=== PATIENT | female | born 1935 | race Caucasian/White ===

== ENCOUNTER 2017-04-09 16:51 | Emergency (ER) | payer OTHER ==
[~2017-04-09] VITALS: Ht 157.5 cm; Wt 72.6 kg
[~2017-04-09 16:51] MED LIST: LEVE500T9 PO; LEVO100T PO
[2017-04-09] MEDS ORDERED: SPIRONOLACTONE (17:00)
[2017-04-09] MEDS ORDERED: ALLOPURINOL (17:00)
[2017-04-09 19:01] LABS: BASOPHILS # (AUTO) 0.1 K/uL (0.0-8.0); BASOPHILS % (AUTO) 0.9 % (0.0-2.0); EOSINOPHILS # (AUTO) 0.4 K/uL (0.0-0.7); EOSINOPHILS % (AUTO) 4.8 % (0.0-7.0); HEMATOCRIT 38.6 % (37-47); HEMOGLOBIN 12.9 G/DL (12.0-16.0); LYMPHOCYTES # (AUTO) 1.5 K/UL (0.8-4.8); LYMPHOCYTES % (AUTO) 19.4 % (20.5-51.5); MEAN CORPUSCULAR HEMOGLOBIN 30.5 UUG (27.0-31.0); MEAN CORPUSCULAR HGB CONC 34 g/dL (32.0-37.0); MEAN CORPUSCULAR VOLUME 90.8 FL (81.0-99.0); MONOCYTES # (AUTO) 0.8 K/UL (0.1-1.30); MONOCYTES % (AUTO) 10.4 % (0.0-11.0); NEUTROPHILS % (AUTO) 64.5 % (38.5-71.5); PLATELET COUNT (AUTO) 202 K/UL (150-450); RED BLOOD CELL COUNT(AUTO) 4.25 MIL/UL (4.2-5.4); WHITE BLOOD COUNT (AUTO) 7.8 K/UL (4.0-11.2)
[2017-04-09 19:07] LABS: CARBON DIOXIDE 27 mmol/L (21-32); CHLORIDE 104 mmol/L (98-107); CREATININE 0.8 mg/dL (0.6-1.3); GLUCOSE 114 mg/dL (74-106); POTASSIUM 3.6 mmol/L (3.5-5.1); UREA NITROGEN, BLOOD 17 mg/dL (7-18)
[2017-04-09 19:13] LABS: ALANINE AMINOTRANSFERASE 19 U/L (14-59); ALKALINE PHOSPHATASE 82 U/L (50-136); ASPARTATE AMINOTRANSFERASE 16 U/L (15-37); BILIRUBIN,DIRECT 0.1 mg/dL (0.0-0.2); BILIRUBIN,TOTAL 0.4 mg/dL (0.2-1.0); TOTAL PROTEIN, SERUM 7.7 g/dL (6.4-8.2)
--- NOTE | 2017-04-09 19:30 | NUR ---
received sitting @ bedside, denies pain or discomfort, in no distress, pending disposition
--- NOTE | 2017-04-09 20:30 | NUR ---
re ryan by Dr. Cantor
--- NOTE | 2017-04-09 20:30 | NUR ---
Fredy martinez in [facility] - 04/10/17 at 0434 by MARTY re eval by Dr. Cardenas Addendum: 04/10/17 at 0434 by MARTY Paul martinez in [facility] - 04/10/17 at 0434 by MARTY re eval by Dr. Cantor
[2017-04-09 21:30] VITALS: BP_SYST 140
== END 2017-04-09 21:30 | disposition home or self-care (01) ==
LOC: ER 16:52
DX: L30.9 Dermatitis, unspecified (principal); G40.909 Epilepsy, unspecified, not intractable, without status epilepticus; R42 Dizziness and giddiness
CPT/HCPCS: 36415; 70450; 71010; 80048; 80076; 83605; 84484; 85025; 85730; 87040 ×2; 93005; 99285; A4663; 70030-TC

== ENCOUNTER 2017-06-02 14:00 | Emergency (ER) | payer OTHER ==
[~2017-06-02] VITALS: Ht 160 cm; Wt 65.8 kg
[~2017-06-02 14:00] MED LIST changes: +ALLOPURINOL; +SPIRONOLACTONE
--- NOTE | 2017-06-02 14:24 | NUR ---
NOTIFIED CENTRAL SUPPLY REGARDING ISOLATION CART FOR SCABIES
[2017-06-02 15:24] LABS: BASOPHILS % (AUTO) 0.4 % (0.0-2.0); EOSINOPHILS # (AUTO) 0.1 K/uL (0.0-0.7); EOSINOPHILS % (AUTO) 0.8 % (0.0-7.0); HEMATOCRIT 35.3 % (37-47); HEMOGLOBIN 11.8 G/DL (12.0-16.0); LYMPHOCYTES # (AUTO) 0.8 K/UL (0.8-4.8); LYMPHOCYTES % (AUTO) 10.2 % (20.5-51.5); MEAN CORPUSCULAR HEMOGLOBIN 30.3 UUG (27.0-31.0); MEAN CORPUSCULAR HGB CONC 33 g/dL (32.0-37.0); MONOCYTES # (AUTO) 0.7 K/UL (0.1-1.30); MONOCYTES % (AUTO) 8.4 % (0.0-11.0); NEUTROPHILS # (AUTO) 6.7 K/UL (1.8-8.9); NEUTROPHILS % (AUTO) 80.2 % (38.5-71.5); PLATELET COUNT (AUTO) 184 K/UL (150-450); RED BLOOD CELL COUNT(AUTO) 3.88 MIL/UL (4.2-5.4); WHITE BLOOD COUNT (AUTO) 8.3 K/UL (4.0-11.2)
--- NOTE | 2017-06-02 15:26 | NUR ---
PT WENT TO CT WITH TECH.
[2017-06-02 15:32] LABS: CARBON DIOXIDE 26 mmol/L (21-32); CHLORIDE 109 mmol/L (98-107); CREATININE 0.8 mg/dL (0.6-1.3); GLUCOSE 101 mg/dL (74-106); POTASSIUM 3.8 mmol/L (3.5-5.1); UREA NITROGEN, BLOOD 15 mg/dL (7-18)
[2017-06-02 15:37] LABS: ALANINE AMINOTRANSFERASE 12 U/L (14-59); ALKALINE PHOSPHATASE 73 U/L (50-136); ASPARTATE AMINOTRANSFERASE 11 U/L (15-37); BILIRUBIN,DIRECT 0.1 mg/dL (0.0-0.2); BILIRUBIN,TOTAL 0.3 mg/dL (0.2-1.0); TOTAL PROTEIN, SERUM 6.8 g/dL (6.4-8.2)
--- NOTE | 2017-06-02 16:39 | NUR ---
ATTEMPTED TO GIVE MEDICATION TO PT. PT REFUSED TO JOJO EBOTH LUXALCIELO AND KEGERMAINE AND VERBALIZED THAT "I DON'T FUCKING TAKE GENERIC MEDICATION" PT BECAME HIGHLY VERBALLY ABUSIBE. MD ZENDEJAS IS AWARE. MEDICATION WASTED
--- NOTE | 2017-06-02 17:16 | NUR ---
PT VERBALIZED THAT SHE WANTS TO BE TRANSFERED TO [place] AT THIS TIME. PT IS REFUSING IV ACCESS, IV PAIN MEDICATIONS, IV KEPPRA AND OTHER OPTIONS THAT MD ZENDEJAS HAVE REQUESTED. PT VERBALIZED, "I JUST WANT TO BE FUCKING TRANSFERED TO [place]."
--- NOTE | 2017-06-02 17:21 | NUR ---
PT IS REFUSING IV ACCESS, MD ZENDEJAS IS AWARE.
--- NOTE | 2017-06-02 17:27 | NUR ---
PT IS REFUSING TO SIGN ANY TRANSFER PAPER WORK. MD ZENDEJAS IS AWARE. PT VERBALIZED, "TELL DEGROOT, TELL EVERYONE, I AM NOT SIGNING A DAMN THING".
--- NOTE | 2017-06-02 17:30 | NUR ---
MD ZENDEJAS IS SPEAKING TO MD CUEVAS FROM [place], GIVING DR- REPORT AT THIS TIME.
--- NOTE | 2017-06-02 18:03 | NUR ---
PRINCESS FROM [place] CALLED PER PRINCESS PT WILL BE TRANSFERED TO [facility] EMERGENCY DEPARTMENT REPORT NUMBER IS [phone] ACCEPTING MD: DR INGRID [facility] ETA [id number]
--- NOTE | 2017-06-02 18:11 | NUR ---
REPORT GIVEN TO CRISELDA WU FROM [facility] PHONE NUMBER: [phone] ACCEPTING MD: DR. QUINTERO VIA B[facility] TRANSPORT DX: LEFT HUMERAL HEAD FX RN CRISELDA AWARE OF PT'S CURRENT CONDITION. WILL CONTINUE FURTHER PLAN OF CARE
--- NOTE | 2017-06-02 18:36 | NUR ---
SPOKE TO PRINCESS FROM [facility]. AWARE OF PT'S CURRENT VSS.
--- NOTE | 2017-06-02 18:55 | NUR ---
ATTEMPTED TO PLACE A SHOULDER IMMOBILIZER. PT VERBALIZED, "TAKE THIS FUCKING SHIT OFF ME." PT IS HIGHLY LABILE. STAFF SPLITTING BEHAVIOR.
--- NOTE | 2017-06-02 19:13 | NUR ---
BEDSIDE REPORT GIVEN TO DENISHA. [id number]. AWARE OF PT'S CURRENT CONDITION. PER MD. PT IS STABLE FOR TRANSFER.
== END 2017-06-02 19:16 | disposition short-term general hospital (02) ==
LOC: ER 14:00
DX: S42.292A Other displaced fracture of upper end of left humerus, initial encounter for closed fracture (principal); G40.909 Epilepsy, unspecified, not intractable, without status epilepticus; I70.0 Atherosclerosis of aorta; B86 Scabies; M85.60 Other cyst of bone, unspecified site; Z79.01 Long term (current) use of anticoagulants; W19.XXXA Unspecified fall, initial encounter; Y93.89 Activity, other specified; Y92.9 Unspecified place or not applicable; Y99.9 Unspecified external cause status
CPT/HCPCS: 36415; 70030-TC; 70450; 71010; 72125; 73030; 85025; 85730; 93005; A4663

== ENCOUNTER 2017-08-16 08:27 | Emergency (ER) | payer OTHER ==
[~2017-08-16] VITALS: Ht 170.2 cm; Wt 75.7 kg
[2017-08-16 09:10] LABS: BASOPHILS % (AUTO) 0.2 % (0.0-2.0); HEMATOCRIT 35.9 % (31.2-41.9); HEMOGLOBIN 11.8 g/dL (10.9-14.3); LYMPHOCYTES # (AUTO) 0.2 K/uL (20.0-40.0); LYMPHOCYTES % (AUTO) 2.4 % (20.5-51.5); MEAN CORPUSCULAR HEMOGLOBIN 28.2 uug (24.7-32.8); MEAN CORPUSCULAR HGB CONC 33 g/dL (32.3-35.6); MEAN CORPUSCULAR VOLUME 85.4 fL (75.5-95.3); MONOCYTES # (AUTO) 0.4 K/uL (2.0-10.0); MONOCYTES % (AUTO) 3.7 % (0.0-11.0); NEUTROPHILS # (AUTO) 9.1 K/uL (1.8-8.9); NEUTROPHILS % (AUTO) 93.7 % (38.5-71.5); PLATELET COUNT (AUTO) 191 K/uL (179-408); WHITE BLOOD COUNT (AUTO) 9.7 K/uL (3.8-11.8)
[2017-08-16 09:21] LABS: CARBON DIOXIDE 28 mmol/L (21-32); CHLORIDE 104 mmol/L (98-107); CREATININE 0.8 mg/dL (0.6-1.3); GLUCOSE 119 mg/dL (74-106); POTASSIUM 3.7 mmol/L (3.5-5.1); UREA NITROGEN, BLOOD 19 mg/dL (7-18)
[2017-08-16 09:28] LABS: ALANINE AMINOTRANSFERASE 15 U/L (14-59); ALKALINE PHOSPHATASE 78 U/L (50-136); ASPARTATE AMINOTRANSFERASE 14 U/L (15-37); BILIRUBIN,TOTAL 0.5 mg/dL (0.2-1.0); TOTAL PROTEIN, SERUM 6.7 g/dL (6.4-8.2)
--- NOTE | 2017-08-16 09:28 | NUR ---
XRAYS DONE, LABS DRAWN BY TECH, STOOL SENT, EKG DONE, PT ATTEMPTED TO VOID HOW EVER COULD NOT. WATER GIVEN TO PT TO DRINK. PT POSITIONED FOR COMFORT .
[2017-08-16 10:19] LABS: THYROID STIMULATING HORMONE 0.11 mIU/mL (0.358-3.740)
--- NOTE | 2017-08-16 13:39 | NUR ---
SBAR REPORT TO EMT'S [facility]. CD COPY/COPY OF CHART GIVEN. PT EARLIER REFUSED SALINE LOCK AND REFUSED TO SIGN BELONGINGS LIST. PT TOOK OFF HOSPITAL GOWN AND PUT ON HER IOWN CLOTHS.
--- NOTE | 2017-08-16 13:48 | NUR ---
CALLED [facility] AT [phone], GAVE SBAR REPORT TO CRISELDA WU.
== END 2017-08-16 13:52 | disposition short-term general hospital (02) ==
LOC: ER 08:28
DX: R19.7 Diarrhea, unspecified (principal); R60.9 Edema, unspecified; R42 Dizziness and giddiness; E03.9 Hypothyroidism, unspecified; K44.9 Diaphragmatic hernia without obstruction or gangrene; Z88.6 Allergy status to analgesic agent; Z90.49 Acquired absence of other specified parts of digestive tract
CPT/HCPCS: 73600; 73620; 74022; 80053; 83880; 84443; 85025; 86625; 87015; 87046; 87427; 87899; 89055; 93005; 99285; A4663; 87177

== ENCOUNTER 2017-09-24 15:54 | Emergency (ER) | payer OTHER ==
[~2017-09-24] VITALS: Ht 170.2 cm; Wt 74.8 kg
[2017-09-24] MEDS ORDERED: IV NORMAL SALINE 1000 ML BAG IV ONE (16:45)
--- NOTE | 2017-09-24 16:54 | NUR ---
attempted saline lock. pt stopped me and stated she was refusing a saline lock to be placed. dr tatum was then informed.
[2017-09-24 17:27] LABS: BASOPHILS # (AUTO) 0.1 K/uL (0.0-8.0); BASOPHILS % (AUTO) 1.2 % (0.0-2.0); EOSINOPHILS # (AUTO) 0.1 K/uL (0.0-0.7); EOSINOPHILS % (AUTO) 1.7 % (0.0-7.0); HEMATOCRIT 32.4 % (31.2-41.9); HEMOGLOBIN 10.6 g/dL (10.9-14.3); LYMPHOCYTES # (AUTO) 1.5 K/uL (20.0-40.0); LYMPHOCYTES % (AUTO) 23.4 % (20.5-51.5); MEAN CORPUSCULAR HEMOGLOBIN 27.8 uug (24.7-32.8); MEAN CORPUSCULAR HGB CONC 33 g/dL (32.3-35.6); MEAN CORPUSCULAR VOLUME 84.8 fL (75.5-95.3); MONOCYTES # (AUTO) 0.8 K/uL (2.0-10.0); NEUTROPHILS # (AUTO) 3.9 K/uL (1.8-8.9); NEUTROPHILS % (AUTO) 60.7 % (38.5-71.5); PLATELET COUNT (AUTO) 233 K/uL (179-408); RED BLOOD CELL COUNT(AUTO) 3.83 MIL/uL (3.63-4.92); WHITE BLOOD COUNT (AUTO) 6.5 K/uL (3.8-11.8)
[2017-09-24 17:37] LABS: CARBON DIOXIDE 28 mmol/L (21-32); CHLORIDE 105 mmol/L (98-107); CREATININE 0.7 mg/dL (0.6-1.3); GLUCOSE 100 mg/dL (74-106); POTASSIUM 3.6 mmol/L (3.5-5.1); UREA NITROGEN, BLOOD 15 mg/dL (7-18)
[2017-09-24 17:55] LABS: ALANINE AMINOTRANSFERASE 10 U/L (14-59); ALKALINE PHOSPHATASE 82 U/L (50-136); ASPARTATE AMINOTRANSFERASE 10 U/L (15-37); BILIRUBIN,DIRECT 0.1 mg/dL (0.0-0.2); BILIRUBIN,TOTAL 0.3 mg/dL (0.2-1.0)
--- NOTE | 2017-09-24 17:57 | NUR ---
pt receiving ns infusion. pt is [facility] [place] to be notified prior to admit. dr tatum was unaware.
--- NOTE | 2017-09-24 18:21 | NUR ---
angel informed regarding pt. awiting for angel barnes to call us back.
[2017-09-24] MEDS ORDERED: OMEP20TA5 PO (18:29)
[2017-09-24] MEDS ORDERED: LEVE1000 PO (18:29)
[2017-09-24] MEDS ORDERED: CEPH250S PO (18:29)
[2017-09-24] MEDS ORDERED: HYDR12.5 PO (18:29)
[2017-09-24] MEDS ORDERED: LACT1CAP61 PO (18:29)
[2017-09-24] MEDS ORDERED: MULT1TAB73 PO (18:29)
[2017-09-24] MEDS ORDERED: LEVO125T PO (18:29)
[2017-09-24] MEDS ORDERED: MUPI22OI2 TP (18:29)
[2017-09-24] MEDS ORDERED: FERR325T28 PO (18:29)
[2017-09-24] MEDS ORDERED: KETO120S6 TP (18:29)
[2017-09-24] MEDS ORDERED: [UNRECOGNIZED DRUG - CODE] TP (18:29)
--- NOTE | 2017-09-24 19:04 | NUR ---
sbar report to pm shift
--- NOTE | 2017-09-24 19:07 | NUR ---
REPORT TAKEN FROM DAY SHIFT RN. ASSUMING PT CARE AT THIS TIME.
--- NOTE | 2017-09-24 19:37 | NUR ---
[facility] called.
--- NOTE | 2017-09-24 19:50 | NUR ---
Bradley LEO spoke with Dr Cantor. Patient awaiting Transport to [place]. Confirmation # [phone]
--- NOTE | 2017-09-24 21:17 | NUR ---
NURSE SCOTT FROM [place] GIVEN REPORT. PATIENT WILL GO TO [facility]. [phone]
--- NOTE | 2017-09-24 21:17 | NUR ---
Fredy martinez in ED - 09/24/17 at 2121 by [id number] SCOTT FROM [place] GIVEN REPORT. PATIENT WILL GO TO [facility]. [phone]
[2017-09-24] MEDS ORDERED: IV NS 1000 ML 1,000 ML IV PRN (21:32)
--- NOTE | 2017-09-24 21:41 | NUR ---
[facility] , UN[address] ALS ARRIVED FOR PATIENT FACILITIES OFFICER TO [facility]
[2017-09-24] MEDS ORDERED: ONDANSETRON 4 MG/2 ML VIAL IV PRN (21:45)
[2017-09-24] MEDS ORDERED: Z GUARD REMEDY PASTE 57 GM TUBE TOP PRN (21:45)
[2017-09-24] MEDS ORDERED: MAGNESIUM HYDROXIDE 30 ML LIQUID UDC PO PRN (21:45)
[2017-09-24] MEDS ORDERED: MORPHINE SULFATE 2 MG/1 ML DISP.SYRIN IV ONE (21:45)
--- NOTE | 2017-09-24 22:07 | NUR ---
Patient Tranfers to outside Facility, [facility] Physician: [facility] ER ALL BELONGINGS WITH PATIENT. NO SKIN ISSUES AT TIME OF TRANSFER. REPORT GIVEN TO SUPERVISOR PIPELINE MAINTENANCE. JEAN CARLOS. NO ACUTE DISTRESS. PERIPHERAL IV REMAINS INTACT FOR TRANSPORT PER ACCEPTING FACILITY REQUEST. CHART GIVEN TO [facility] CLOTH TRIMMER HAND FOR TRANSPORT TO ACCEPTING FACILITY.
[2017-09-25] MEDS ORDERED: LEVETIRACETAM 500 MG TABLET PO SCH (09:00)
[2017-09-25] MEDS ORDERED: HYDROCHLOROTHIAZIDE 12.5 MG CAPSULE PO SCH (09:00)
[2017-09-25] MEDS ORDERED: CEPHALEXIN MONOHYDRATE 500 MG CAPSULE PO ONE (09:00)
[2017-09-25] MEDS ORDERED: Medication Not On Formulary EA (Lactobacillus Acidophilus (Acidophilus) 1 EACH) PO SCH (09:00)
[2017-09-25] MEDS ORDERED: Medication Not On Formulary EA (Omeprazole 20 MG) PO SCH (09:00)
[2017-09-25] MEDS ORDERED: LEVOTHYROXINE SODIUM 100 MCG TABLET PO SCH (09:00)
== END 2017-09-24 22:17 | disposition short-term general hospital (02) ==
LOC: ER 15:54
DX: E86.0 Dehydration (principal); R42 Dizziness and giddiness; R19.7 Diarrhea, unspecified; E03.9 Hypothyroidism, unspecified; G62.9 Polyneuropathy, unspecified; I10 Essential (primary) hypertension; I44.0 Atrioventricular block, first degree; I70.0 Atherosclerosis of aorta; L03.116 Cellulitis of left lower limb; M21.371 Foot drop, right foot; Z86.718 Personal history of other venous thrombosis and embolism; Z88.6 Allergy status to analgesic agent; M21.372 Foot drop, left foot; Z90.49 Acquired absence of other specified parts of digestive tract
CPT/HCPCS: 36415; 70030-TC; 70450; 71045; 83605; 85025; 85730; 87040; 93005; A4663; J7030; J7040

== ENCOUNTER 2018-02-26 20:37 | Emergency (ER) | payer OTHER ==
[~2018-02-26] VITALS: Ht 157.5 cm; Wt 68.0 kg
[~2018-02-26 20:37] MED LIST changes: +CEPH250S PO; +FERR325T28 PO; +HYDR12.5 PO; +KETO120S6 TP; +LACT1CAP61 PO; +LEVE1000 PO; +LEVO125T PO; +MULT1TAB73 PO; +MUPI22OI2 TP; +OMEP20TA5 PO; +[UNRECOGNIZED DRUG - CODE] TP
--- NOTE | 2018-02-26 20:49 | NUR ---
PT BIBA IN NO DISTRESS, AAOX4, C/O SEIZURE TODAY WHILE LAYING IN BED, DENIES HITTING HEAD, NO INJURIES NOTED, PT DENIES ANY DIZINESS, NUMBENESS, OR OTHER NEURO DEFICIT/SOB/CP.PT PLACED ON TERMINAL OPERATOR,BED IN LOW POSTION, LOCKED, HOB UP, SR UP X2 FOR SAFETY, AWAITING MD ECHEVERRIA
[2018-02-26] MEDS ORDERED: LEVETIRACETAM IV 500 MG in IV DEXTROSE 5% 100 ML IV ONE (21:15)
[2018-02-26] MEDS ORDERED: LEVETIRACETAM 500 MG/5 ML VIAL IV ONE (21:18)
[2018-02-26] MEDS ORDERED: VITAMIN B12 PO (21:34)
--- NOTE | 2018-02-26 22:30 | NUR ---
PT WATCHING TV EKG,LABS ORDERED REQUESTED BY MIKAYLA,
[2018-02-26 22:52] LABS: BASOPHILS # (AUTO) 0.1 K/uL (0.0-8.0); BASOPHILS % (AUTO) 1.1 % (0.0-2.0); EOSINOPHILS # (AUTO) 0.1 K/uL (0.0-0.7); EOSINOPHILS % (AUTO) 0.9 % (0.0-7.0); HEMATOCRIT 36.4 % (31.2-41.9); HEMOGLOBIN 12.4 g/dL (10.9-14.3); LYMPHOCYTES # (AUTO) 1.4 K/uL (20.0-40.0); LYMPHOCYTES % (AUTO) 18.4 % (20.5-51.5); MEAN CORPUSCULAR HEMOGLOBIN 30.6 uug (24.7-32.8); MEAN CORPUSCULAR HGB CONC 34 g/dL (32.3-35.6); MEAN CORPUSCULAR VOLUME 90.2 fL (75.5-95.3); MONOCYTES # (AUTO) 0.9 K/uL (2.0-10.0); MONOCYTES % (AUTO) 12.1 % (0.0-11.0); NEUTROPHILS # (AUTO) 5.3 K/uL (1.8-8.9); NEUTROPHILS % (AUTO) 67.5 % (38.5-71.5); PLATELET COUNT (AUTO) 183 K/uL (179-408); RED BLOOD CELL COUNT(AUTO) 4.04 MIL/uL (3.63-4.92); WHITE BLOOD COUNT (AUTO) 7.8 K/uL (3.8-11.8)
[2018-02-26 23:04] LABS: CARBON DIOXIDE 27 mmol/L (21-32); CHLORIDE 105 mmol/L (98-107); GLUCOSE 112 mg/dL (74-106); POTASSIUM 3.2 mmol/L (3.5-5.1); UREA NITROGEN, BLOOD 20 mg/dL (7-18)
--- NOTE | 2018-02-27 00:01 | NUR ---
REPORT CALLED SPOKE WITH LAURA WU, ETA FROM [facility] IS [phone]
== END 2018-02-27 00:45 | disposition short-term general hospital (02) ==
LOC: ER 20:38
DX: G40.909 Epilepsy, unspecified, not intractable, without status epilepticus (principal); I10 Essential (primary) hypertension; Z90.49 Acquired absence of other specified parts of digestive tract; Z88.6 Allergy status to analgesic agent; Z88.8 Allergy status to other drugs, medicaments and biological substances; Z79.899 Other long term (current) drug therapy; Z79.2 Long term (current) use of antibiotics
CPT/HCPCS: 36415; 70030-TC; 85025; 85730; 93005; A4663; J1953; J7060

== ENCOUNTER 2018-03-24 13:42 | Emergency (ER) | payer OTHER ==
[~2018-03-24] VITALS: Ht 160 cm; Wt 65.8 kg
[~2018-03-24 13:42] MED LIST changes: -ALLOPURINOL; -CEPH250S PO; -FERR325T28 PO; -KETO120S6 TP; -LACT1CAP61 PO; -LEVE500T9 PO; -LEVO125T PO; -MULT1TAB73 PO; -MUPI22OI2 TP; -OMEP20TA5 PO; -SPIRONOLACTONE; +VITAMIN B12 PO; -[UNRECOGNIZED DRUG - CODE] TP
--- NOTE | 2018-03-24 13:47 | NUR ---
REFUGIO LEO at the bedside for MSE.
[2018-03-24] MEDS ORDERED: LORAZEPAM 2 MG/1 ML VIAL ONE (13:57)
[2018-03-24] MEDS ORDERED: LORAZEPAM 2 MG/1 ML VIAL IV ONE (14:00)
[2018-03-24 14:19] LABS: BASOPHILS # (AUTO) 0.1 K/uL (0.0-8.0); BASOPHILS % (AUTO) 1.1 % (0.0-2.0); EOSINOPHILS # (AUTO) 0.1 K/uL (0.0-0.7); EOSINOPHILS % (AUTO) 1.2 % (0.0-7.0); HEMATOCRIT 37.6 % (31.2-41.9); HEMOGLOBIN 12.8 g/dL (10.9-14.3); LYMPHOCYTES # (AUTO) 1.4 K/uL (20.0-40.0); MEAN CORPUSCULAR HEMOGLOBIN 31.3 uug (24.7-32.8); MEAN CORPUSCULAR HGB CONC 34 g/dL (32.3-35.6); MEAN CORPUSCULAR VOLUME 91.8 fL (75.5-95.3); MONOCYTES # (AUTO) 0.7 K/uL (2.0-10.0); MONOCYTES % (AUTO) 10.7 % (0.0-11.0); NEUTROPHILS # (AUTO) 4.2 K/uL (1.8-8.9); PLATELET COUNT (AUTO) 171 K/uL (179-408); WHITE BLOOD COUNT (AUTO) 6.4 K/uL (3.8-11.8)
[2018-03-24 14:27] LABS: CARBON DIOXIDE 26 mmol/L (21-32); CHLORIDE 104 mmol/L (98-107); CREATININE 0.9 mg/dL (0.6-1.3); GLUCOSE 103 mg/dL (74-106); POTASSIUM 3.5 mmol/L (3.5-5.1); UREA NITROGEN, BLOOD 15 mg/dL (7-18)
--- NOTE | 2018-03-24 14:35 | NUR ---
[facility] requested information provided.
--- NOTE | 2018-03-24 15:18 | NUR ---
Pt provided snack and drink, no c/o pain, N/V. Pt had no seizure activity since arrival.
--- NOTE | 2018-03-24 16:21 | NUR ---
Report given to Marilee at [facility], as well as [facility]. Pt left Er in stable concition. All belongings sent w/ Pt.
== END 2018-03-24 16:25 | disposition short-term general hospital (02) ==
LOC: ER 13:43
DX: R56.9 Unspecified convulsions (principal); I10 Essential (primary) hypertension; Z88.6 Allergy status to analgesic agent; Z88.8 Allergy status to other drugs, medicaments and biological substances; Z90.49 Acquired absence of other specified parts of digestive tract
CPT/HCPCS: 36415; 80048; 85025; 99285; A4663; J2060

== ENCOUNTER → 2018-04-13 | Emergency (ER) | payer OTHER ==
[~2018-04-13] VITALS: Ht 165.1 cm; Wt 65.8 kg
[~2018-04-13] MED LIST changes: +diphenhydrAMINE 50 MG/1 ML VIAL IV ONE; +diphenhydrAMINE 50 MG/1 ML VIAL ONE
[2018-04-13 03:41] LABS: BASOPHILS # (AUTO) 0.1 K/uL (0.0-8.0); BASOPHILS % (AUTO) 1.4 % (0.0-2.0); EOSINOPHILS # (AUTO) 0.1 K/uL (0.0-0.7); EOSINOPHILS % (AUTO) 1.7 % (0.0-7.0); LYMPHOCYTES # (AUTO) 1.1 K/uL (20.0-40.0); LYMPHOCYTES % (AUTO) 21.2 % (20.5-51.5); MEAN CORPUSCULAR HEMOGLOBIN 30.9 uug (24.7-32.8); MEAN CORPUSCULAR HGB CONC 34 g/dL (32.3-35.6); MEAN CORPUSCULAR VOLUME 90.3 fL (75.5-95.3); MONOCYTES # (AUTO) 0.7 K/uL (2.0-10.0); MONOCYTES % (AUTO) 12.7 % (0.0-11.0); NEUTROPHILS # (AUTO) 3.3 K/uL (1.8-8.9); PLATELET COUNT (AUTO) 168 K/uL (179-408); RED BLOOD CELL COUNT(AUTO) 3.88 MIL/uL (3.63-4.92); WHITE BLOOD COUNT (AUTO) 5.2 K/uL (3.8-11.8)
[2018-04-13 03:51] LABS: CARBON DIOXIDE 25 mmol/L (21-32); CHLORIDE 107 mmol/L (98-107); CREATININE 0.9 mg/dL (0.6-1.3); GLUCOSE 97 mg/dL (74-106); POTASSIUM 3.5 mmol/L (3.5-5.1); UREA NITROGEN, BLOOD 13 mg/dL (7-18)
[2018-04-13 03:59] LABS: ALANINE AMINOTRANSFERASE 15 U/L (14-59); ALKALINE PHOSPHATASE 63 U/L (50-136); ASPARTATE AMINOTRANSFERASE 16 U/L (15-37); BILIRUBIN,DIRECT 0.1 mg/dL (0.0-0.2); BILIRUBIN,TOTAL 0.4 mg/dL (0.2-1.0); TOTAL PROTEIN, SERUM 6.7 g/dL (6.4-8.2)
--- NOTE | 2018-04-13 04:02 | NUR ---
CALL PLACED TO [facility]. SPOKE WITH CT SCAN TECHNICIAN, VIDHI. VIDHI STATES THAT A [facility] WILL CALL BACK SHORTLY.
--- NOTE | 2018-04-13 04:25 | NUR ---
Yana from [place] [facility] called back with transfer info. Patient will be going to [facility] ER . Accepting MD is Terry Cohen
--- NOTE | 2018-04-13 04:26 | NUR ---
Patient ETA pick with [facility] ambulance is 1hr
--- NOTE | 2018-04-13 05:25 | NUR ---
[facility] ARRIVES. REPORT GIVEN TO ROCAEL RATLIFF W/ [facility] UNIT #[id number]
--- NOTE | 2018-04-13 05:28 | NUR ---
REPORT GIVEN TO [facility] ER NURSE, MAHOGANY
--- NOTE | 2018-04-13 05:45 | NUR ---
PT IN ROUTE TO [facility] W/ [id number]
== END | disposition home or self-care (01) ==
LOC: ER 02:54
DX: S80.12XA Contusion of left lower leg, initial encounter (principal); L29.9 Pruritus, unspecified; I10 Essential (primary) hypertension; Z90.49 Acquired absence of other specified parts of digestive tract; Z88.6 Allergy status to analgesic agent; Z88.8 Allergy status to other drugs, medicaments and biological substances; W07.XXXA Fall from chair, initial encounter; Y93.89 Activity, other specified; Y92.89 Other specified places as the place of occurrence of the external cause; Y99.8 Other external cause status
CPT/HCPCS: 36415; 73590; 80048; 80076; 85025; 96374; 99285; A4663; J1200

== ENCOUNTER 2018-12-19 12:09 | Emergency (ER) | payer OTHER ==
[~2018-12-19] VITALS: Ht 162.6 cm; Wt 75.7 kg
[~2018-12-19 12:09] MED LIST changes: -diphenhydrAMINE 50 MG/1 ML VIAL IV ONE; -diphenhydrAMINE 50 MG/1 ML VIAL ONE
--- NOTE | 2018-12-19 12:18 | NUR ---
Dr Cantor at the bedside for MSE.
[2018-12-19] MEDS ORDERED: MORPHINE SULFATE 2 MG/1 ML DISP.SYRIN IV ONE (12:30)
[2018-12-19] MEDS ORDERED: ONDANSETRON 4 MG/2 ML VIAL IV ONE (12:30)
[2018-12-19] MEDS ORDERED: VANCOMYCIN IV 1,000 MG in IV DEXTROSE 5% 250 ML IV ONE (12:30)
[2018-12-19] MEDS ORDERED: VANCOMYCIN IV 200 ML ONE (12:38)
[2018-12-19] MEDS ORDERED: ONDANSETRON 4 MG/2 ML VIAL ONE (12:38)
[2018-12-19] MEDS ORDERED: MORPHINE SULFATE 4 MG/1 ML DISP.SYRIN ONE (12:38)
[2018-12-19 12:58] LABS: BASOPHILS # (AUTO) 0.1 K/uL (0.0-8.0); BASOPHILS % (AUTO) 1.3 % (0.0-2.0); EOSINOPHILS # (AUTO) 0.2 K/uL (0.0-0.7); EOSINOPHILS % (AUTO) 2.5 % (0.0-7.0); HEMATOCRIT 38.5 % (31.2-41.9); HEMOGLOBIN 12.8 g/dL (10.9-14.3); LYMPHOCYTES # (AUTO) 1.4 K/uL (20.0-40.0); LYMPHOCYTES % (AUTO) 23.5 % (20.5-51.5); MEAN CORPUSCULAR HEMOGLOBIN 29.4 uug (24.7-32.8); MEAN CORPUSCULAR HGB CONC 33 g/dL (32.3-35.6); MEAN CORPUSCULAR VOLUME 88.6 fL (75.5-95.3); MONOCYTES # (AUTO) 0.7 K/uL (2.0-10.0); NEUTROPHILS # (AUTO) 3.7 K/uL (1.8-8.9); NEUTROPHILS % (AUTO) 60.7 % (38.5-71.5); PLATELET COUNT (AUTO) 197 K/uL (179-408); RED BLOOD CELL COUNT(AUTO) 4.35 MIL/uL (3.63-4.92); WHITE BLOOD COUNT (AUTO) 6.1 K/uL (3.8-11.8)
[2018-12-19 13:05] LABS: CARBON DIOXIDE 26 mmol/L (21-32); CHLORIDE 102 mmol/L (98-107); CREATININE 0.9 mg/dL (0.6-1.3); GLUCOSE 106 mg/dL (74-106); POTASSIUM 3.5 mmol/L (3.5-5.1); UREA NITROGEN, BLOOD 15 mg/dL (7-18)
[2018-12-19 13:17] LABS: ALANINE AMINOTRANSFERASE 13 U/L (14-59); ALKALINE PHOSPHATASE 79 U/L (50-136); ASPARTATE AMINOTRANSFERASE 9 U/L (15-37); BILIRUBIN,DIRECT 0.1 mg/dL (0.0-0.2); BILIRUBIN,TOTAL 0.3 mg/dL (0.2-1.0); TOTAL PROTEIN, SERUM 7.4 g/dL (6.4-8.2)
--- NOTE | 2018-12-19 14:10 | NUR ---
PT OUT OF ER FOR CT SCAN.
--- NOTE | 2018-12-19 15:52 | NUR ---
REFUGIO LEO SPOKE TO DR NESS AT [facility].
[2018-12-19] MEDS ORDERED: VITA400T9 PO (16:05)
--- NOTE | 2018-12-19 16:30 | NUR ---
PT MADE AWARE OF TRANSFER TO [place]. PT REFUSED TO SIGN TRANSFER PAPERWORK.
--- NOTE | 2018-12-19 16:38 | NUR ---
REPORT GIVEN TO DRAW OPERATOR AT [facility].
--- NOTE | 2018-12-19 17:05 | NUR ---
REPORT GIVEN TO [facility]. VSS ON DISCHARGE, ALL BELONGINGS SENT W/ PT.
== END 2018-12-19 17:34 | disposition short-term general hospital (02) ==
LOC: ER 12:10
DX: L03.116 Cellulitis of left lower limb (principal); M25.511 Pain in right shoulder; I10 Essential (primary) hypertension; K21.9 Gastro-esophageal reflux disease without esophagitis; R55 Syncope and collapse; Z90.49 Acquired absence of other specified parts of digestive tract; Z88.8 Allergy status to other drugs, medicaments and biological substances; Z88.6 Allergy status to analgesic agent; Z79.899 Other long term (current) drug therapy
CPT/HCPCS: 36415; 70450; 71045; 73590; 73630; 80048; 80076; 83880; 84484; 85025; 85730; 93005; 93970; 96365; 96366; 99285; J3370; 70030-TC; A4663; J2270; J2405

== ENCOUNTER 2019-01-01 09:20 | Emergency (ER) | payer OTHER ==
[~2019-01-01] VITALS: Ht 157.5 cm; Wt 73.5 kg
[~2019-01-01 09:20] MED LIST changes: +VITA400T9 PO
--- NOTE | 2019-01-01 09:26 | NUR ---
PT A/OX4, BIB RA909, C/O DIZZINESS AND LLE PAIN. PER SECONDARY SCHOOL TEACHER LIBRARIAN'S REPORT, PT WAS SEEN IN THIS ER RECENTLY W/ SAME COMPLAINT. PT PRESENTS W/ EDEMA TO LLE W/ MODERATE BRUISING. PT DENIES RECENT FALL. BLE PMSC INTACT, NORMAL, CAP REFILL < 3 SECS. VSS. PT DENIES C/P, SOB, N/V/D, HEADACHE.
--- NOTE | 2019-01-01 09:43 | NUR ---
REFUGIO LEO AT BEDSIDE FOR MSE.
--- NOTE | 2019-01-01 10:06 | NUR ---
MD is still evaluating the patient, pending MD orders. Hands off report given to JAZMIN Faustin
[2019-01-01] MEDS ORDERED: IV NORMAL SALINE 500 ML BAG IV ONE (10:15)
[2019-01-01 10:32] LABS: BASOPHILS # (AUTO) 0.1 K/uL (0.0-8.0); BASOPHILS % (AUTO) 1.1 % (0.0-2.0); EOSINOPHILS # (AUTO) 0.1 K/uL (0.0-0.7); EOSINOPHILS % (AUTO) 1.9 % (0.0-7.0); HEMATOCRIT 37.9 % (31.2-41.9); HEMOGLOBIN 12.6 g/dL (10.9-14.3); LYMPHOCYTES # (AUTO) 1.2 K/uL (20.0-40.0); LYMPHOCYTES % (AUTO) 17.5 % (20.5-51.5); MEAN CORPUSCULAR HEMOGLOBIN 29.6 uug (24.7-32.8); MEAN CORPUSCULAR HGB CONC 33 g/dL (32.3-35.6); MEAN CORPUSCULAR VOLUME 88.9 fL (75.5-95.3); MONOCYTES # (AUTO) 0.7 K/uL (2.0-10.0); MONOCYTES % (AUTO) 9.8 % (0.0-11.0); NEUTROPHILS # (AUTO) 4.8 K/uL (1.8-8.9); NEUTROPHILS % (AUTO) 69.7 % (38.5-71.5); PLATELET COUNT (AUTO) 184 K/uL (179-408); RED BLOOD CELL COUNT(AUTO) 4.26 MIL/uL (3.63-4.92); WHITE BLOOD COUNT (AUTO) 6.9 K/uL (3.8-11.8)
[2019-01-01 10:38] LABS: CARBON DIOXIDE 30 mmol/L (21-32); CHLORIDE 103 mmol/L (98-107); CREATININE 0.8 mg/dL (0.6-1.3); GLUCOSE 101 mg/dL (74-106); POTASSIUM 3.6 mmol/L (3.5-5.1); UREA NITROGEN, BLOOD 19 mg/dL (7-18)
[2019-01-01 10:43] LABS: ALANINE AMINOTRANSFERASE 9 U/L (14-59); ALKALINE PHOSPHATASE 76 U/L (50-136); ASPARTATE AMINOTRANSFERASE 7 U/L (15-37); BILIRUBIN,DIRECT 0.1 mg/dL (0.0-0.2); BILIRUBIN,TOTAL 0.3 mg/dL (0.2-1.0); TOTAL PROTEIN, SERUM 7.5 g/dL (6.4-8.2)
--- NOTE | 2019-01-01 11:23 | NUR ---
PT A.OX4. claims she cannot bear weight. no pressure ulcers. pt a.o x 4. color good. feet slight mottled
--- NOTE | 2019-01-01 13:03 | NUR ---
[facility] [place] [facility] pt going to [facility]. accepting Dr.David Rush pt to be picked up by [facility] at 1450.
== END 2019-01-01 13:05 | disposition short-term general hospital (02) ==
LOC: ER 09:20
DX: M79.605 Pain in left leg (principal); R42 Dizziness and giddiness; R60.9 Edema, unspecified; I10 Essential (primary) hypertension; K21.9 Gastro-esophageal reflux disease without esophagitis; Z88.6 Allergy status to analgesic agent; Z88.8 Allergy status to other drugs, medicaments and biological substances; Z79.899 Other long term (current) drug therapy
CPT/HCPCS: 70030-TC; 70450; 71045; 85025; 85730; 93005; A4663; J7040

== ENCOUNTER 2019-06-06 12:45 | Emergency (ER) | payer OTHER ==
[~2019-06-06] VITALS: Ht 157.5 cm; Wt 65.8 kg
--- NOTE | 2019-06-06 12:54 | NUR ---
PT IS IN ROOM #1B. DR QUINTANA EVALUATED THE PT.
[2019-06-06] MEDS ORDERED: LEVE500T9 PO (12:58)
[2019-06-06] MEDS ORDERED: MULT1TAB73 PO (12:58)
[2019-06-06 13:17] LABS: BASOPHILS # (AUTO) 0.1 K/uL (0.0-8.0); BASOPHILS % (AUTO) 1.1 % (0.0-2.0); EOSINOPHILS # (AUTO) 0.1 K/uL (0.0-0.7); EOSINOPHILS % (AUTO) 1.7 % (0.0-7.0); HEMATOCRIT 37.5 % (31.2-41.9); HEMOGLOBIN 12.7 g/dL (10.9-14.3); LYMPHOCYTES # (AUTO) 1.4 K/uL (20.0-40.0); LYMPHOCYTES % (AUTO) 28.4 % (20.5-51.5); MEAN CORPUSCULAR HEMOGLOBIN 31.6 uug (24.7-32.8); MEAN CORPUSCULAR HGB CONC 34 g/dL (32.3-35.6); MONOCYTES # (AUTO) 0.7 K/uL (2.0-10.0); NEUTROPHILS # (AUTO) 2.8 K/uL (1.8-8.9); NEUTROPHILS % (AUTO) 55.8 % (38.5-71.5); PLATELET COUNT (AUTO) 176 K/uL (179-408); RED BLOOD CELL COUNT(AUTO) 4.03 MIL/uL (3.63-4.92); WHITE BLOOD COUNT (AUTO) 5.1 K/uL (3.8-11.8)
[2019-06-06 13:22] LABS: CREATININE 0.9 mg/dL (0.6-1.3); POTASSIUM 3.6 mmol/L (3.5-5.1)
--- NOTE | 2019-06-06 15:38 | NUR ---
DR QUINTANA TALK[facility] TO [facility] VIA BLS AMBULANCE ACCORDING TO [facility] INSHURANCE REQUEST.
--- NOTE | 2019-06-06 16:22 | NUR ---
PT REFUSED TO BE TRANSFERED TO [facility]. DR QUINTANA TALKED TO THE PT AND EXPLAINED ALL NECESSETIES TO BE TRANSFERED TO [facility] FOR FURTHER HEALTH CARE. PT REFUSED TRANSFER AND DECIDED TO LEAVE [facility] AMA TO GO HOME. DR QUINTANA EXPLAINED TO THE PT ALL RISKS OF LEAVING HOSPITAL AMA. PT VERBALIZED FULL UNDERSTANDING. PT REFUSED TO SIGN AMA FORM. DR QUINTANA WAS NOTIFIED. PT CALLED HER RELATIVE TO PICK HER UP AN BRING HOME. HE IS GOING TO BE HERE IN 30 MINUTES. [facility] CLIENT RELATION SPECIALIST KOBI WAS CALLED ([phone]) TO CANCEL TRANSFER ARRANGEMENTS.
--- NOTE | 2019-06-06 17:12 | NUR ---
PT LEFT HOSPITAL AMA WIT HER RELATIVES BY CAR. NO S/S OF ACUTE DISTRESS AT THE TIME OF DISCHARGE.
[2019-06-06 17:13] VITALS: BP 138/88
== END 2019-06-06 17:14 | disposition left against medical advice (07) ==
LOC: ER 12:45
DX: S89.92XA Unspecified injury of left lower leg, initial encounter (principal); R51 Headache; H53.8 Other visual disturbances; I10 Essential (primary) hypertension; K21.9 Gastro-esophageal reflux disease without esophagitis; F32.9 Major depressive disorder, single episode, unspecified; Z90.49 Acquired absence of other specified parts of digestive tract; Z88.6 Allergy status to analgesic agent; Z88.8 Allergy status to other drugs, medicaments and biological substances; Z79.899 Other long term (current) drug therapy; W19.XXXA Unspecified fall, initial encounter; Y93.89 Activity, other specified; Y92.89 Other specified places as the place of occurrence of the external cause; Y99.8 Other external cause status
CPT/HCPCS: 36415; 70030-TC; 70450; 73590; 73610; 73630; 85025; 93005; A4663

== ENCOUNTER 2020-03-24 12:12 | Emergency (ER) | payer OTHER ==
[~2020-03-24] VITALS: Ht 157.5 cm; Wt 72.1 kg
[~2020-03-24 12:12] MED LIST changes: -LEVE1000 PO; +LEVE500T9 PO; +MULT-594 PO
[2020-03-24 12:52] LABS: BASOPHILS # (AUTO) 0.1 K/uL (0.0-8.0); BASOPHILS % (AUTO) 1.2 % (0.0-2.0); EOSINOPHILS # (AUTO) 0.1 K/uL (0.0-0.7); EOSINOPHILS % (AUTO) 0.9 % (0.0-7.0); HEMATOCRIT 36.4 % (31.2-41.9); HEMOGLOBIN 12.3 g/dL (10.9-14.3); LYMPHOCYTES # (AUTO) 1.3 K/uL (20.0-40.0); LYMPHOCYTES % (AUTO) 18.8 % (20.5-51.5); MEAN CORPUSCULAR HEMOGLOBIN 30.9 uug (24.7-32.8); MEAN CORPUSCULAR HGB CONC 34 g/dL (32.3-35.6); MEAN CORPUSCULAR VOLUME 91.1 fL (75.5-95.3); MONOCYTES # (AUTO) 0.7 K/uL (2.0-10.0); MONOCYTES % (AUTO) 9.8 % (0.0-11.0); NEUTROPHILS # (AUTO) 4.7 K/uL (1.8-8.9); NEUTROPHILS % (AUTO) 69.3 % (38.5-71.5); PLATELET COUNT (AUTO) 174 K/uL (179-408); RED BLOOD CELL COUNT(AUTO) 3.99 MIL/uL (3.63-4.92); WHITE BLOOD COUNT (AUTO) 6.8 K/uL (3.8-11.8)
--- NOTE | 2020-03-24 12:57 | NUR ---
PT IS IN ROOM #1A. DR MOORE EVALUATED THE PT.
[2020-03-24 13:35] LABS: CREATININE 0.8 mg/dL (0.6-1.3); POTASSIUM 3.6 mmol/L (3.5-5.1)
[2020-03-24 13:39] LABS: BILIRUBIN,DIRECT 0.1 mg/dL (0.0-0.2); BILIRUBIN,TOTAL 0.5 mg/dL (0.2-1.0); TOTAL PROTEIN, SERUM 7.2 g/dL (6.4-8.2)
--- NOTE | 2020-03-24 14:32 | NUR ---
DR MOORE TALKED TO DR SALAS FROM [facility]. PT IS GOING TO BE TRANSFERED TO [facility] ACCORDING HIS INSHURANCE REQUEST.
--- NOTE | 2020-03-24 14:51 | NUR ---
ACCORDING TO [facility] CINDER MAN BIN Wyatt PT IS GOINGTO BE TRANSFERED TO [facility] ER VIA ALS AMBULANCE. ADMITTIND MD IS DR SCHAEFFER. TELEPHONE NUMBER FOR REPORT IS [phone].
--- NOTE | 2020-03-24 15:23 | NUR ---
PT WENT TO [facility] [place] VIAALS AMBULANCE. REPORT WAS GIVEN TO [facility] RN AND TO AMBULANCE RN.
== END 2020-03-24 15:29 | disposition short-term general hospital (02) ==
LOC: ER 12:12
DX: G40.909 Epilepsy, unspecified, not intractable, without status epilepticus (principal); M25.572 Pain in left ankle and joints of left foot; K44.9 Diaphragmatic hernia without obstruction or gangrene; I11.9 Hypertensive heart disease without heart failure; K21.9 Gastro-esophageal reflux disease without esophagitis; Z90.49 Acquired absence of other specified parts of digestive tract; J47.9 Bronchiectasis, uncomplicated; M48.00 Spinal stenosis, site unspecified; R73.03 Prediabetes; I44.0 Atrioventricular block, first degree; R94.31 Abnormal electrocardiogram [ECG] [EKG]; Z86.73 Personal history of transient ischemic attack (TIA), and cerebral infarction without residual deficits
CPT/HCPCS: 36415; 70030-TC; 70450; 71045; 73610; 83735; 85025; 85730; 93005; A4663

== ENCOUNTER 2021-02-20 17:37 | Emergency (ER) | payer OTHER ==
[~2021-02-20] VITALS: Ht 157.5 cm; Wt 56.7 kg
[2021-02-20] MEDS ORDERED: VANCOMYCIN IV 1,000 MG in IV DEXTROSE 5% 250 ML IV ONE (17:45)
--- NOTE | 2021-02-20 17:45 | NUR ---
at bedside for assessment
[2021-02-20] MEDS ORDERED: VANCOMYCIN IV 200 ML ONE (18:01)
[2021-02-20 18:39] LABS: HEMATOCRIT 36.2 % (31.2-41.9); MEAN CORPUSCULAR HEMOGLOBIN 31.1 uug (24.7-32.8); MEAN CORPUSCULAR VOLUME 93.2 fL (75.5-95.3); PLATELET COUNT (AUTO) 166 K/uL (179-408)
[2021-02-20 18:42] LABS: POTASSIUM 3.6 mmol/L (3.5-5.1)
[2021-02-20 18:47] LABS: BILIRUBIN,DIRECT 0.1 mg/dL (0.0-0.2); BILIRUBIN,TOTAL 0.3 mg/dL (0.2-1.0); TOTAL PROTEIN, SERUM 6.8 g/dL (6.4-8.2)
--- NOTE | 2021-02-20 18:52 | NUR ---
biomedical instrument technician noted at bedside, no signs of acute distress detected from patient at this time
--- NOTE | 2021-02-20 19:52 | NUR ---
Patient refused covid testing at this time. notified.
--- NOTE | 2021-02-20 20:04 | NUR ---
Patient noted to be red no the chest and around the eyes, MD aware and at bedside at this time.
[2021-02-20 20:11] VITALS: BP 120/68
--- NOTE | 2021-02-20 20:11 | NUR ---
Note juan in EDM - 02/20/21 at 2013 by [id number] Patient discharged to home in stable condition. Written and verbal after care instructions given. Patient verbalizes understanding of instructions. Stressed follow up or return to ER for worsening s/s.
--- NOTE | 2021-02-20 20:30 | NUR ---
Received a call from Ra MCKIN[facility] [place], confirming home address of patient. [place] will arrange transportation home. Will receive call back for ETA.
[2021-02-20] MEDS ORDERED: CEFTRIAXONE /D5W 50ML IVPB **ER PYXIS IV ONE (20:53)
[2021-02-20] MEDS ORDERED: CEPH500C2 PO (21:12)
[2021-02-20] MEDS ORDERED: CEFTRIAXONE 1 G in IV DEXTROSE 5% 50 ML IV ONE (21:15)
--- NOTE | 2021-02-20 21:22 | NUR ---
Dr. Tran from [place] speaking with LANDRY at this time.
--- NOTE | 2021-02-20 21:44 | NUR ---
LANDRY spoke with patient nephew Kevon Gagnonan, he agreed to pickling drum operator prsicription. [facility] 97 here for pickling drum operator. patient is alert and oriented, no acute distress, denies chest pain, sob at this time.
--- NOTE | 2021-02-20 21:47 | NUR ---
Patient discharged to home in stable condition. Written and verbal after care instructions given. Patient verbalizes understanding of instructions. Stressed follow up or return to ER for worsening s/s.
== END 2021-02-20 21:47 | disposition home or self-care (01) ==
LOC: ER 17:39
DX: L03.116 Cellulitis of left lower limb (principal); L03.115 Cellulitis of right lower limb; R60.0 Localized edema; Z60.2 Problems related to living alone; G40.802 Other epilepsy, not intractable, without status epilepticus; R73.03 Prediabetes; G62.9 Polyneuropathy, unspecified; I11.9 Hypertensive heart disease without heart failure; G31.84 Mild cognitive impairment of uncertain or unknown etiology; K21.9 Gastro-esophageal reflux disease without esophagitis; K44.9 Diaphragmatic hernia without obstruction or gangrene; M21.379 Foot drop, unspecified foot; Z79.82 Long term (current) use of aspirin; Z79.899 Other long term (current) drug therapy; L27.0 Generalized skin eruption due to drugs and medicaments taken internally; T36.8X5A Adverse effect of other systemic antibiotics, initial encounter; Y92.230 Patient room in hospital as the place of occurrence of the external cause; R94.31 Abnormal electrocardiogram [ECG] [EKG]
CPT/HCPCS: 36415; 71045; 80048; 80076; 83605; 85025; 87040 ×2; 93005; 93970; 96365; 96366; 96367; 99285; J0696; J3370; A4663

== ENCOUNTER 2021-04-06 23:29 | Emergency (ER) | payer OTHER ==
[~2021-04-06] VITALS: Ht 157.5 cm; Wt 74.4 kg
[~2021-04-06 23:29] MED LIST changes: +CEPH500C2 PO
--- NOTE | 2021-04-06 23:45 | NUR ---
Patient BIB RA 83 from home, A&Ox4, GCS 15. Patient states she does not have any youth career specialist at home, and called EMS because she wanted her diaper changed. Patient c/c: urinary incontinence, states she was recently discharged from acute rehab but still cannot walk very well. Patient states pain of legs and buttocks. I tried to ask why she was in acute rehab, but patient got frustrated and did want to answer my question. Patient is a poor historian.
--- NOTE | 2021-04-06 23:45 | NUR ---
Unable to fully complete triage information d/t patient not wanting to answer all the questions, and inability to provide a proper history. Patient is however A&Ox4, and cognitively intact.
--- NOTE | 2021-04-06 23:55 | NUR ---
MD Clements in room to do MSE.
--- NOTE | 2021-04-07 00:17 | NUR ---
Lab at bedside.
[2021-04-07] MEDS ORDERED: MORPHINE SULFATE 2 MG/1 ML DISP.SYRIN IM ONE (01:00)
[2021-04-07] MEDS ORDERED: MORPHINE SULFATE 2 MG/1 ML DISP.SYRIN ONE (01:09)
[2021-04-07 01:26] LABS: *BILIRUBIN,URIN NEGATIVE (NEGATIVE); *BLOOD, URINE NEGATIVE (NEGATIVE); *CLARITY,URINE CLEAR (CLEAR); *COLOR,URINE YELLOW (YELLOW); *KETONES,URINE NEGATIVE (NEGATIVE); *UROBILINOGEN,URINE 0.2 E.U./dl (NORMAL); LEUKOCYTE ESTERASE ,URINE NEGATIVE (NEGATIVE); NITRITE, URINE NEGATIVE (NEGATIVE); UGLUCOSE NEGATIVE (NEGATIVE)
--- NOTE | 2021-04-07 01:28 | NUR ---
Ultrasound (Emma) at bedside.
--- NOTE | 2021-04-07 03:55 | NUR ---
Patient is resting comfortably in bed with eyes closed. VSS.
[2021-04-07 04:51] LABS: BILIRUBIN,DIRECT 0.2 mg/dL (0.0-0.2); BILIRUBIN,TOTAL 0.6 mg/dL (0.2-1.0); CREATININE 0.8 mg/dL (0.6-1.3); POTASSIUM 4.6 mmol/L (3.5-5.1); TOTAL PROTEIN, SERUM 6.6 g/dL (6.4-8.2)
[2021-04-07] MEDS ORDERED: levETIRAcetam 250 MG TABLET ONE ×2 (04:51→05:35)
--- NOTE | 2021-04-07 04:58 | NUR ---
wireless cellular technician Kervin called notifed that the blood sample might not be good due to lab results, redraw may need to be done. MD Clements notified. Hgb 5.7/hct 17.1 Plt 3
--- NOTE | 2021-04-07 05:02 | NUR ---
PT NOTED TO BE VERY UNCOOPERATIVE TOWARDS MEDICAL CARE AND NOTED TO BE VERBALLY AGGRESIVE TOWARDS STAFF DESPITE PROVIDING EXPLANATION AND CALM ENVIRONMENT.
[2021-04-07] MEDS ORDERED: levETIRAcetam 250 MG TABLET PO ONE (05:30)
[2021-04-07 06:16] LABS: HEMATOCRIT 30.7 % (31.2-41.9); MEAN CORPUSCULAR VOLUME 90.6 fL (75.5-95.3); PLATELET COUNT (AUTO) 252 K/uL (179-408)
--- NOTE | 2021-04-07 06:43 | NUR ---
[facility] PAGED.
--- NOTE | 2021-04-07 07:16 | NUR ---
Resting in bed, NAD noted.
--- NOTE | 2021-04-07 08:10 | NUR ---
Breakfast tray provided, pt ate w/ great appetite.
--- NOTE | 2021-04-07 09:44 | NUR ---
Called [facility] again, awaiting for tx info.
--- NOTE | 2021-04-07 10:03 | NUR ---
Pt resting in bed, states "I just want to GO home."
--- NOTE | 2021-04-07 10:58 | NUR ---
Spoke to [facility], ETA for pickup is 15 min. Pt's career orientation teacher notified by pt.
[2021-04-07 12:01] VITALS: BP 125/68
--- NOTE | 2021-04-07 12:03 | NUR ---
IV removed. Catheter intact and site benign. Pressure and 4x4 gauze applied to site. No bleeding noted.
--- NOTE | 2021-04-07 12:15 | NUR ---
Report given to transfering coke wheeler. Pt left ER in stable condition. All belongings sent w/ pt.
== END 2021-04-07 12:28 | disposition short-term general hospital (02) ==
LOC: ER 23:32
DX: M79.605 Pain in left leg (principal); M79.604 Pain in right leg; R32 Unspecified urinary incontinence; Z88.6 Allergy status to analgesic agent; Z90.49 Acquired absence of other specified parts of digestive tract; R03.0 Elevated blood-pressure reading, without diagnosis of hypertension
CPT/HCPCS: 36415; 51702; 85025; A4663; J2270

== ENCOUNTER 2021-04-10 23:30 | Emergency (ER) | payer OTHER ==
[~2021-04-10] VITALS: Ht 162.6 cm; Wt 80.7 kg
--- NOTE | 2021-04-10 23:42 | NUR ---
BIB RA 839 FROM HOME FOR C/O BILAT LOWER EXTREMITY PAIN. A/O X3, NO SOB OR LABORED BREATHING, AFEBRILE. DENIES CP/PRESSURE.
--- NOTE | 2021-04-10 23:43 | NUR ---
DR. WELCH AT BEDSIDE, MSE IN PROGRESS.
[2021-04-11] MEDS: HYDROMORPHONE HCL 2 MG TABLET PO ONE ×2 (00:18→09:40)
--- NOTE | 2021-04-11 00:35 | NUR ---
US (DEMETRIS) AT BEDSIDE.
[2021-04-11] MEDS ORDERED: HYDROMORPHONE HCL 2 MG TABLET ONE ×2 (01:25→09:44)
--- NOTE | 2021-04-11 02:01 | NUR ---
PT RESTING COMFORTABLY IN BED, VSS.
--- NOTE | 2021-04-11 04:32 | NUR ---
Patient is resting comfortably in bed with eyes closed. Breathing even and unlabored.
--- NOTE | 2021-04-11 05:24 | NUR ---
Called Tali MCKINLEY spoke with [facility], [place] will call back again with ambulance KAM.
--- NOTE | 2021-04-11 05:41 | NUR ---
Roe from [facility] called with [facility] ETA at 6:15AM.
--- NOTE | 2021-04-11 06:20 | NUR ---
[place], pt's neighbor, call back number [phone].
--- NOTE | 2021-04-11 08:00 | NUR ---
When pt couldn't find her house keys, Ambulance returned to service. Since, pt found house jarrett. Called [facility] back and they will call/reschedule transport. Pt's monorail operator "Pi" will be at pt's house around 0900: [phone]
[2021-04-11 08:12] LABS: HEMATOCRIT 30.9 % (31.2-41.9); MEAN CORPUSCULAR HEMOGLOBIN 30.7 uug (24.7-32.8); MEAN CORPUSCULAR VOLUME 89.8 fL (75.5-95.3); PLATELET COUNT (AUTO) 305 K/uL (179-408)
[2021-04-11 08:19] LABS: CREATININE 0.7 mg/dL (0.6-1.3); POTASSIUM 3.5 mmol/L (3.5-5.1)
[2021-04-11 08:25] LABS: BILIRUBIN,TOTAL 0.6 mg/dL (0.2-1.0); TOTAL PROTEIN, SERUM 7.2 g/dL (6.4-8.2)
--- NOTE | 2021-04-11 09:48 | NUR ---
Gave pt d/c instructions, pt verbalized understanding, refused to sign. Gave EMT's report, pt transported.
[2021-04-11 09:50] VITALS: BP 126/87
== END 2021-04-11 09:52 | disposition home or self-care (01) ==
LOC: ER 23:32
DX: M79.605 Pain in left leg (principal); M79.604 Pain in right leg; Z88.6 Allergy status to analgesic agent; Z86.718 Personal history of other venous thrombosis and embolism; E07.9 Disorder of thyroid, unspecified; Z79.899 Other long term (current) drug therapy; Z79.890 Hormone replacement therapy; R03.0 Elevated blood-pressure reading, without diagnosis of hypertension
CPT/HCPCS: 36415; 73610; 85025